=== PATIENT | female | born 1970 | race Caucasian/White ===

== ENCOUNTER 2025-01-28 17:16 | Emergency (ER) | payer OTHER, SELFPAY ==
[2025-01-28 17:19] VITALS: BP 122/80
[2025-01-28 17:26] VITALS: BP 122/80
--- NOTE | 2025-01-28 17:26 | ED.GENMED ---
History of Present Illness
General
Chief Complaint: Chest Pain
Source: patient
Exam Limitations: none
Time Seen by Provider: 01/28/25 17:24
Nursing documentation reviewed up to this point in time: agreed with
History of Present Illness
History of Present Illness:
54 yo female with hx occasional reflux, takes Pepcid prn, Brian's thyroiditis, takes Levothyroxine, presents for chest pain. Was sitting on her couch 1.5 hours ago when she developed sudden onset of mid chest pain, 'stabbing pain that felt like
it went through to my back'' then it was like someone was sitting on my chest.' Initially pain was 8/10, now it is 5/10. She denies N/V/D/C, denies shortness of breath or feeling weak or dizzy. She took a Pepcid with no relief.
She went to , had SL NTG x 1, called EMS and they gave ASA 324 mg en route.
Past History
Past History
ED Past Medical History: Other (stomach ulcers )
ED Past Surgical History: Gynecological
Social History
Tobacco: Smoker
Alcohol: Occasional
Personal: Single
Living: with family
Employment: Employed
Review of Systems
Review of Systems
Allergies reviewed?: Yes
All Other Systems: ROS reviewed and negative except as documented in HPI and ROS
Phy Exam
Physical Exam
Physical Exam:
GENERAL: No acute distress. A&Ox3.
CONSTITUTIONAL: Afebrile.
EYES: clear, conjunctivae normal
ENMT: moist mucus membranes, Pharynx nl
RESPIRATORY: Regular respirations, nonlabored, lungs clear.
CARDIOVASCULAR: Regular rate and rhythm, no murmurs, no rubs.
GI: Soft, nontender, normal BS
MUSCULOSKELETAL: Moves with ease. Well perfused.
SKIN: Warm, dry, pink
PSYCH: Normal mood and affect. Well kept, interactive and appropriate
NEUROLOGIC: Awake, alert and oriented. No focal neurological deficits
Scores
Heart Score for Chest Pain Patients
STEMI patient?: Not applicable
Course
Orders/Labs/Results
Orders:
Orders
01/28/25 17:25
Electrocardiogram (*1) Urgent
Reason for Study: Chest Pain
EKG- Treatment ONCE
01/28/25 17:26
CR Chest - 2 Views Urgent
Comment:
Reason For Exam: chest pain
01/28/25 17:32
Basic Metabolic Panel Urgent
Complete Blood Count/With Diff Urgent
TSH Urgent
Comment: SHARE
01/28/25 19:08
0.9% Sodium Chloride 1000 ml [Nss] 1,000 ml IV BOLUS
01/28/25 19:16
Ketorolac [Toradol] 15 mg IV NOW STA
Pantoprazole [Protonix IV] 80 mg IV NOW STA
01/28/25 19:43
Troponin I Urgent
01/28/25 20:40
Troponin I Q3H
Abnormal Lab Results
01/28/25
17:32
WBC 11.3 H 10^3/uL
(4.8-10.8)
MCH 31.8 H pg
(27.0-31.0)
Absolute Neuts (auto) 7.2 H 10^3/uL
(1.4-6.5)
Absolute Monos (auto) 0.7 H 10^3/uL
(0.1-0.6)
Chloride 108 H mmol/L
(98-107)
BUN 26 H mg/dl
(7-17)
Glucose 111 H mg/dl
(70-99)
01/28/25 17:32
01/28/25 17:32
Vital Signs
Initial and Last Documented VS:
Initial Vital Signs
BP
122/80
01/28/25 17:19
Last Documented Vital Signs
Temp Pulse Resp BP Pulse Ox
98.3 F 51 16 105/66 95
01/28/25 17:26 01/28/25 21:30 01/28/25 21:30 01/28/25 21:00 01/28/25 21:30
MDM/Problems Addressed
Differential Diagnosis Includes:
GERD, costochondritis, CO
MDM/Problems Addressed:
54 yo female with hx occasional reflux, takes Pepcid prn, Brian's thyroiditis, takes Levothyroxine, presents for chest pain. Was sitting on her couch 1.5 hours ago when she developed sudden onset of mid chest pain, 'stabbing pain that felt like
it went through to my back'' then it was like someone was sitting on my chest.' Initially pain was 8/10, now it is 5/10. She denies N/V/D/C, denies shortness of breath or feeling weak or dizzy. She took a Pepcid with no relief. Pt states it
doesn't feel like her typical reflux
She went to , had SL NTG x 1, called EMS and they gave ASA 324 mg en route
EKG: NSR HR 68
7:00 p.m.
CBC unremarkable
CMP BUN 26 otherwise normal. IV fluids ordered for mild dehydration
TSH WNL
CXR: NAD
Plan: IV Toradol and Protonix for poss GERD, costochondritis.
Troponin #1 is WNL
Pt awaiting Troponin #2.
Case discussed with Mary Tan NP who will assume care from this point
*Pulse Oximetry
SaO2: 98
Oxygen Mode of Delivery: Room air
Patient hypoxic: no
*Critical Care Note
Total Time (30-74mins, 75-104mins- exclusive of procedures): Not Applicable
ED Attending Note
-
Portions of this chart may have been created with voice recognition software.� Occasional wrong word or��sound alike� substitutions may have occurred due to the inherent limitations of voice recognition software.
Discharge Plan
Departure
Patient Disposition: Home (Routine Discharge)
Date of Disposition: 01/28/25
Time of Disposition: 21:29
Patient with high blood pressure during this ER visit?: No
Condition: Good
Discharge Problem:
Atypical chest pain
Instructions: Chest Pain That Is Not Caused by the Heart (DC), Acid Reflux and GERD in Adults (DC), Costochondritis (DC)
Prescriptions:
No Action
metaxalone [Skelaxin] 800 MG tablet
800 mg PO .3-4 TIMES DAILY PRN PRN (Reason: MUSCLE SPASM/TIGHTNESS) Qty: 30 0RF
Referrals:
Wesley Reeder MD [Family Provider, Internal Medicine] - As needed
Valentine Orozco MD [Active, Gastroenterology] - As needed
Nuria Pruitt DO [Active, Cardiology] - Next open appointment
Activity Restrictions/Additional Instructions:
As we discussed, nothing worrisome in your workup here today, specifically no sign of a heart attack or damage to your heart.
Your blood work shows mild dehydration.
Your chest xray is normal.
You were given Protonix to reduce the acid in your stomach in case this was atypical GERD, Continue your Pepcid daily for the next week.
You were given Toradol antiinflammatory in case you have costochondritis. You may continue Ibuprofen 600 mg (with food) every 6 hours as needed for pain.
[place] diet for a few days. Drink plenty of water.
I have provided you with the information for a [facility] and GI doctor if needed for follow up.
Interventions
Interventions:
*Risk Screen - Suicide Last Done: 01/28/25 17:24
*General Assessment Last Done: 01/28/25 17:27
*Neglect/Abuse Screening Last Done: 01/28/25 17:27
*ED- Fall Risk Assessment Last Done: 01/28/25 17:27
*ED COVID-19 Vaccine History Last Done: 01/28/25 17:27
*Nursing Disposition Last Done: 01/28/25 21:55
ED- Cardiac Assessment Last Done: 01/28/25 17:27
Discharge Date and Time
Discharge Date/Time: 01/28/25 21:55
Print Language: MONTSERRATIAN
[2025-01-28 17:27] VITALS: BMI 26.2
[2025-01-28 18:04] LABS: Hematocrit 39.9 % (37.0-47.0); Hemoglobin 13.5 g/dL (12.0-16.0); Mean Corp Hgb Conc. 33.8 g/dL (33.0-37.0); Mean Corpuscular Volume 93.9 fL (81.0-99.0); Nucleated Red Blood Cells % 0 %; Platelet Count 226 10^3/uL (130-400); Red Cell Dist. Width 12.9 % (11.5-14.5)
[2025-01-28 18:27] LABS: Blood Urea Nitrogen 26 mg/dl (7-17); Calcium 9.3 mg/dl (8.4-10.2); Carbon Dioxide 25 mmol/L (22-30); Chloride 108 mmol/L (98-107); Estimated Creatinine Clearance 80 ml/min; Glucose 111 mg/dl (70-99); Sodium 139 mmol/L (135-145); eGFR > 60.00
[2025-01-28 18:33] VITALS: BP 100/50
[2025-01-28 18:54] LABS: TSH 1.33 uIU/ml (0.47-4.68)
[2025-01-28 19:00] VITALS: BP 105/68
[2025-01-28] MEDS: NSS 1000 IV (19:12)
[2025-01-28] MEDS: TORADOL 15 MG IV (19:24)
[2025-01-28] MEDS: PROTONIX IV 80 MG IV (19:24)
[2025-01-28 20:00] VITALS: BP 109/80
[2025-01-28 20:12] LABS: Troponin I < 0.012 ng/ml
[2025-01-28 21:00] VITALS: BP 105/66
[2025-01-28 21:11] LABS: Troponin I < 0.012 ng/ml
== END 2025-01-28 21:55 | disposition home or self-care (01) ==
LOC: EMR 17:16
PROVIDERS: Registered Nurse; EMERGENCY PHYSICIAN Emergency Medicine; FAMILY PHYSICIAN Internal Medicine
DX: R07.89 Other chest pain (principal); K21.9 Gastro-esophageal reflux disease without esophagitis; E06.3 Autoimmune thyroiditis; F17.210 Nicotine dependence, cigarettes, uncomplicated; Z79.899 Other long term (current) drug therapy; Z85.41 Personal history of malignant neoplasm of cervix uteri; Z87.11 Personal history of peptic ulcer disease
CPT/HCPCS: 99285; 96374; 96375; 96361; 71046; 80048; 84443; 84484; 85025; 93005